=== PATIENT | female | born 1960 | race Caucasian/White ===

== ENCOUNTER 2016-02-23 07:08 | Outpatient (CLI) | payer OTHER | END 2016-02-23 07:09 | disposition home or self-care (01) | DX: J06.9 Acute upper respiratory infection, unspecified (principal) ==

== ENCOUNTER 2016-05-04 08:21 | Outpatient (CLI) | payer OTHER | END 2016-05-04 08:22 | disposition home or self-care (01) | DX: R53.83 Other fatigue (principal) ==

== ENCOUNTER 2016-05-22 13:52 | Outpatient (CLI) | payer OTHER | END 2016-05-22 13:53 | disposition home or self-care (01) | DX: Z12.31 Encounter for screening mammogram for malignant neoplasm of breast (principal); Z80.3 Family history of malignant neoplasm of breast ==

== ENCOUNTER 2017-08-31 08:27 | Outpatient (CLI) | payer OTHER | END 2017-08-31 08:28 | disposition home or self-care (01) | LOC: LAB 08:27 | PROVIDERS: ATTEND Physician Assistant Medical | DX: Z00.00 Encounter for general adult medical examination without abnormal findings (principal); E03.9 Hypothyroidism, unspecified; Z79.899 Other long term (current) drug therapy; Z13.818 Encounter for screening for other digestive system disorders; Z72.89 Other problems related to lifestyle; E78.2 Mixed hyperlipidemia ==

== ENCOUNTER 2017-09-07 08:39 | Outpatient (CLI) | payer OTHER ==
[2017-09-07 08:54] LABS: BASOPHILS # (AUTO) 0.1 10^3/uL (0.0-0.1); BASOPHILS % (AUTO) 1.2 %; EOSINOPHILS # (AUTO) 0.2 10^3/uL (0.0-0.7); EOSINOPHILS % (AUTO) 3.3 %; HGB - HEMOGLOBIN 13.1 g/dL (12.0-16.0); MEAN CORPUSCULAR HGB CONC 32.7 g/dL (32.0-36.0); MEAN CORPUSCULAR VOLUME 82.3 fL (81.0-99.0); MEAN PLATELET VOLUME 7.9 fL (7.9-10.8); MONOCYTES # (AUTO) 0.3 10^3/uL (0.0-1.0); MONOCYTES % (AUTO) 4.9 %; NEUTROPHILS # (AUTO) 2.9 10^3/uL (1.5-6.6); NEUTROPHILS % (AUTO) 53.6 %; PLT - PLATELET COUNT 270 10^3/uL (130-450); RED BLOOD COUNT 4.87 10^6/uL (4.20-5.40); RED CELL DISTRIBUTION WIDTH 14.1 % (12.0-15.0); WHITE BLOOD COUNT 5.5 x10^3/uL (4.8-10.8)
[2017-09-07 09:12] LABS: ALBUMIN/GLOBULIN RATIO 1.4 (1.0-2.2); ALKALINE PHOSPHATASE 56 IU/L (42-121); ALT ALANINE AMINOTRANSFERASE 19 IU/L (10-60); AST ASPARTATE AMINOTRANSFERASE 17 IU/L (10-42); BILIRUBIN,TOTAL 0.8 mg/dL (0.2-1.0); BUN - BLOOD UREA NITROGEN 20 mg/dL (6-20); CALCIUM 8.7 mg/dL (8.5-10.3); CARBON DIOXIDE - CO2 23 mmol/L (21-32); CHLORIDE 108 mmol/L (101-111); CHOL/HDL RATIO 3.5 (<4.4); CHOLESTEROL 221 mg/dL; CREATININE 0.7 mg/dL (0.4-1.0); GFR - MDRD 87 (>89); GLUCOSE 101 mg/dL (70-100); HDL CHOLESTEROL 64 mg/dL; LDL CHOLESTEROL,CALCULATED 142 mg/dL; LDL/HDL RATIO 2.2 (<4.4); SODIUM 138 mmol/L (135-145); TOTAL PROTEIN 6.9 g/dL (6.7-8.2); VLDL CHOLESTEROL 15 mg/dL
[2017-09-07 09:46] LABS: THYROID STIMULATING HORMONE 2.14 uIU/mL (0.34-5.60)
[2017-09-07 09:48] LABS: FREE T4 (FREE THYROXINE) 0.44 ng/dL (0.58-1.64)
[2017-09-09 12:52] LABS: HEPATITIS C ANTIBODY NON-REACTIVE (NON-REACTIVE)
== END 2017-09-07 08:40 | disposition home or self-care (01) ==
LOC: LAB 08:39
PROVIDERS: ATTEND Physician Assistant Medical
DX: Z00.00 Encounter for general adult medical examination without abnormal findings (principal); E03.9 Hypothyroidism, unspecified; Z79.899 Other long term (current) drug therapy; Z13.818 Encounter for screening for other digestive system disorders
CPT/HCPCS: 36415; 80053; 80061; 83721; 84439; 84443; 84481; 85025; 86803

== ENCOUNTER 2017-09-12 15:39 | Outpatient (CLI) | payer OTHER ==
--- NOTE | 2017-09-16 10:06 | Mammography Report ---
Procedure Date: 09/15/2017 Accession Number: [id number] / [id number] Procedure: MGN - Screening Mammo Dig Bilat CPT Code: FULL RESULT: EXAM: Screening Mammo Dig Bilat DATE: 09/15/2017 8:18 AM CLINICAL HISTORY: 57-year-old female with family history of breast cancer in the mother at age 71 presents for screening mammogram. TECHNIQUE: Bilateral CC and MLO views were obtained. COMPARISON: 05/22/2016, 04/27/2015, 03/25/2014. FINDINGS: The breasts demonstrate scattered fibroglandular densities bilaterally. No suspicious masses, clustered microcalcifications, or regions of architectural distortion are identified. IMPRESSION: Negative examination RECOMMENDATION: Routine annual screening unless otherwise clinically indicated. BIRADS CATEGORY 1: Negative STANDARD QUALIFYING STATEMENTS: 1. This examination was reviewed with the aid of Computer-Aided Detection (CAD). 2. A negative or benign imaging report should not delay biopsy if clinically suspicious findings are present. Consider surgical consultation if warrented. More than 5% of cancers are not identified by imaging. 3. Dense breasts may obscure an underlying neoplasm.
== END 2017-09-12 15:40 | disposition home or self-care (01) ==
LOC: DI.N 15:39
PROVIDERS: ATTEND Physician Assistant Medical
DX: Z12.31 Encounter for screening mammogram for malignant neoplasm of breast (principal); Z80.3 Family history of malignant neoplasm of breast
CPT/HCPCS: 77067

== ENCOUNTER 2017-10-27 13:59 | Outpatient (CLI) | payer OTHER | END 2017-10-27 14:00 | disposition home or self-care (01) | LOC: NS 13:59 | PROVIDERS: ATTEND Physician Assistant Medical | DX: Z71.3 Dietary counseling and surveillance (principal); E66.9 Obesity, unspecified; Z68.38 Body mass index [BMI] 38.0-38.9, adult | CPT/HCPCS: 97802 ==

== ENCOUNTER 2017-11-01 07:54 | Outpatient (CLI) | payer OTHER ==
[2017-11-01 15:53] LABS: THYROID STIMULATING HORMONE 1.69 uIU/mL (0.34-5.60)
[2017-11-01 15:55] LABS: FREE T4 (FREE THYROXINE) 0.45 ng/dL (0.58-1.64)
== END 2017-11-01 07:55 | disposition home or self-care (01) ==
LOC: LAB 07:54
PROVIDERS: ATTEND Physician Assistant Medical
DX: R53.83 Other fatigue (principal); E03.9 Hypothyroidism, unspecified; Z79.899 Other long term (current) drug therapy
CPT/HCPCS: 36415; 82533; 84439; 84443; 84481

== ENCOUNTER 2017-11-01 15:13 | Outpatient (CLI) | payer OTHER ==
--- NOTE | 2017-11-01 16:48 | XRAY Report ---
Reason: LEG PAIN,RIGHT Procedure Date: 11/01/2017 Accession Number: [id number] / [id number] Procedure: XR - Tib/Fib RT CPT Code: FULL RESULT: EXAM: RIGHT TIBIA/FIBULA RADIOGRAPHY EXAM DATE: 11/01/2017 03:28 PM. CLINICAL HISTORY: LEG Pain, right. COMPARISON: None. TECHNIQUE: 2 views. FINDINGS: Bones: Normal. No fracture or bone lesion. Joints: The visualized knee and ankle joints are normal. No effusions. Soft Tissues: There is small calcifications within the pretibial soft tissues. No acute soft tissue abnormalities are seen. IMPRESSION: 1. No fracture or focal bony lesion. 2. There are small benign-appearing calcifications within the pretibial soft tissues. RADIA
--- NOTE | 2017-11-02 12:19 | Ultrasound Report ---
Reason: ABNORMAL UTERINE BLEEDING Procedure Date: 11/01/2017 Accession Number: [id number] / [id number] Procedure: US - Pelvic w/Transvaginal CPT Code: FULL RESULT: EXAM: PELVIC ULTRASOUND EXAM DATE: 11/01/2017 04:01 PM. CLINICAL HISTORY: Abnormal uterine bleeding. COMPARISON: None. TECHNIQUE: Realtime transabdominal pelvic scan performed to identify the uterus and adnexa and as an overview of other pelvic structures, followed by transvaginal scan to provide greater detail of the uterus and adnexa, with static image documentation. FINDINGS: Uterus: 8.0 x 4.0 x 4.3 cm, volume 72 cc. Anteverted position. Normal overall size and echotexture. Masses: 2.3 x 2.2 x 2.7 cm anterior superior subserosal uterine fibroid. Endometrium: 2.7 mm. No endometrial mass or polyp. Cervix: 1 cm nabothian anechoic cyst. No mass. Right Ovary: 1.4 x 1.1 x 1.3 cm, volume 1.05 cc. Normal echotexture and blood flow. Seen only on the transabdominal imaging. Left Ovary: 1.8 x 1.2 x 1.5 cm, volume 1.7 cc. Normal echotexture and blood flow. Free Fluid: None. Other: None. IMPRESSION: 1. 2.7 cm subserosal uterine fibroid. 2. No endometrial mass or polyp. Endometrium measures 2.7 mm. In the appropriate clinical circumstances, endometrial atrophy can have a similar appearance. Correlate clinically. 3. Both ovaries and adnexa are normal. RADIA
== END 2017-11-01 15:14 | disposition home or self-care (01) ==
LOC: DI 15:13
PROVIDERS: ATTEND Physician Assistant Medical
DX: N93.9 Abnormal uterine and vaginal bleeding, unspecified (principal); D25.2 Subserosal leiomyoma of uterus; M79.604 Pain in right leg; R53.83 Other fatigue; E03.9 Hypothyroidism, unspecified; Z79.899 Other long term (current) drug therapy
CPT/HCPCS: 36415; 76830; 76856; 82533; 84439; 84443; 84481

== ENCOUNTER 2017-11-27 13:57 | Outpatient (CLI) | payer OTHER | END 2017-11-27 13:58 | disposition home or self-care (01) | LOC: NS 13:57 | PROVIDERS: ATTEND Physician Assistant Medical | DX: Z71.3 Dietary counseling and surveillance (principal); Z68.37 Body mass index [BMI] 37.0-37.9, adult | CPT/HCPCS: 97803 ==

== ENCOUNTER 2018-04-12 08:13 | Outpatient (CLI) | payer BC | END 2018-04-12 08:14 | disposition home or self-care (01) | LOC: DI 08:13 | PROVIDERS: ATTEND Registered Nurse | DX: Z53.9 Procedure and treatment not carried out, unspecified reason (principal) ==

== ENCOUNTER 2018-04-13 11:22 | Outpatient (CLI) | payer BC ==
--- NOTE | 2018-04-13 14:22 | XRAY Report ---
Reason: THORACIC BACK PAIN Procedure Date: 04/13/2018 Accession Number: [id number] / [id number] Procedure: XR - Thoracic Spine 2 View CPT Code: FULL RESULT: EXAM: THORACIC SPINE RADIOGRAPHY EXAM DATE: 04/13/2018 11:54 AM. CLINICAL HISTORY: Thoracic back pain. COMPARISON: Thoracic spine 3 views 11/10/2012. TECHNIQUE: 2 views. FINDINGS: Alignment: Mild thoracic kyphosis appears similar to 2012. No listhesis is identified. No scoliosis. Bones: No fractures or bone lesions. Disks: Normal. Disk heights are maintained. Soft Tissues: Normal. The visualized lungs and cardiomediastinal silhouette are normal. IMPRESSION: Mild thoracic kyphosis. RADIA
== END 2018-04-13 11:23 | disposition home or self-care (01) ==
LOC: DI 11:22
PROVIDERS: ATTEND Registered Nurse
DX: M54.6 Pain in thoracic spine (principal); M40.204 Unspecified kyphosis, thoracic region
CPT/HCPCS: 72070

== ENCOUNTER 2018-11-03 07:39 | Outpatient (CLI) | payer BC ==
[2018-11-03 08:02] LABS: BASOPHILS % (AUTO) 0.5 %; EOSINOPHILS # (AUTO) 0.2 10^3/uL (0.0-0.7); EOSINOPHILS % (AUTO) 3.4 %; HGB - HEMOGLOBIN 12.9 g/dL (12.0-16.0); LYMPHOCYTES % (AUTO) 31.7 %; MEAN CORPUSCULAR HEMOGLOBIN 26.3 pg (27.0-31.0); MEAN CORPUSCULAR HGB CONC 31.9 g/dL (32.0-36.0); MEAN CORPUSCULAR VOLUME 82.4 fL (81.0-99.0); MEAN PLATELET VOLUME 10.1 fL (7.9-10.8); MONOCYTES # (AUTO) 0.4 10^3/uL (0.0-1.0); MONOCYTES % (AUTO) 6.6 %; NEUTROPHILS # (AUTO) 3.7 10^3/uL (1.5-6.6); NEUTROPHILS % (AUTO) 57.6 %; PLT - PLATELET COUNT 262 10^3/uL (130-450); WHITE BLOOD COUNT 6.4 x10^3/uL (4.8-10.8)
[2018-11-03 08:20] LABS: ALBUMIN 4.2 g/dL (3.2-5.5); ALBUMIN/GLOBULIN RATIO 1.4 (1.0-2.2); ALKALINE PHOSPHATASE 55 IU/L (42-121); ALT ALANINE AMINOTRANSFERASE 27 IU/L (10-60); AST ASPARTATE AMINOTRANSFERASE 19 IU/L (10-42); BILIRUBIN,TOTAL 0.7 mg/dL (0.2-1.0); BUN - BLOOD UREA NITROGEN 17 mg/dL (6-20); CALCIUM 9.2 mg/dL (8.5-10.3); CARBON DIOXIDE - CO2 25 mmol/L (21-32); CHLORIDE 106 mmol/L (101-111); CHOL/HDL RATIO 3.7 (<4.4); CHOLESTEROL 256 mg/dL; CREATININE 0.6 mg/dL (0.4-1.0); GFR - MDRD 103 (>89); GLUCOSE 107 mg/dL (70-100); HDL CHOLESTEROL 70 mg/dL; LDL CHOLESTEROL,CALCULATED 168 mg/dL; LDL/HDL RATIO 2.4 (<4.4); SODIUM 140 mmol/L (135-145); TOTAL PROTEIN 7.1 g/dL (6.7-8.2); VLDL CHOLESTEROL 18 mg/dL
[2018-11-03 08:33] LABS: THYROID STIMULATING HORMONE 2.09 uIU/mL (0.34-5.60)
[2018-11-03 08:35] LABS: FREE T4 (FREE THYROXINE) 0.45 ng/dL (0.58-1.64)
== END 2018-11-03 07:40 | disposition home or self-care (01) ==
LOC: LAB 07:39
PROVIDERS: ATTEND Nurse Practitioner
DX: R53.83 Other fatigue (principal); E03.9 Hypothyroidism, unspecified; Z79.899 Other long term (current) drug therapy; E78.2 Mixed hyperlipidemia
CPT/HCPCS: 36415; 80053; 80061; 83721; 84439; 84443; 84481; 85025

== ENCOUNTER 2019-04-09 14:41 | Outpatient (CLI) | payer BC ==
--- NOTE | 2019-04-12 08:59 | Mammography Report ---
Reason: ROUTINE MAMMO Procedure Date: 04/09/2019 Accession Number: [id number] / [id number] Procedure: OTILIA - Screening Mammo w/Tramaine CPT Code: Final Report FULL RESULT: EXAM: Screening Mammo w/Tramaine DATE: 04/09/2019 2:58 PM CLINICAL HISTORY: Screening encounter. Family history of breast cancer in the mother at the age of 70. TECHNIQUE: (B) - Bilateral CC and MLO views were obtained. COMPARISON: 09/12/2017 through 11/16/2009. PARENCHYMAL PATTERN: (A) - The breast(s) demonstrate(s) scattered fibroglandular densities. FINDINGS: There are no suspicious masses, calcifications, or areas of distortion. IMPRESSION: Negative examination. BI-RADS category 1. RECOMMENDATION: (ANNUAL) - Recommend routine annual screening mammography. BI-RADS CATEGORY: (1) - Negative. STANDARD QUALIFYING STATEMENTS: 1. This examination was not reviewed with the aid of Computer-Aided Detection (CAD). 2. A negative or benign imaging report should not preclude biopsy if clinically suspicious findings are present. 3. Dense breasts may obscure an underlying neoplasm. 4. This examination was reviewed with the aid of 3D breast imaging (tomosynthesis).
== END 2019-04-09 14:42 | disposition home or self-care (01) ==
LOC: DI 14:41
PROVIDERS: ATTEND Nurse Practitioner
DX: Z12.31 Encounter for screening mammogram for malignant neoplasm of breast (principal); Z80.3 Family history of malignant neoplasm of breast
CPT/HCPCS: 77063; 77067

== ENCOUNTER 2019-11-19 08:00 | Outpatient (CLI) | payer BC ==
[2019-11-19 08:28] LABS: ALBUMIN 4.3 g/dL (3.2-5.5); ALBUMIN/GLOBULIN RATIO 1.5 (1.0-2.2); ALKALINE PHOSPHATASE 52 IU/L (42-121); ALT ALANINE AMINOTRANSFERASE 21 IU/L (10-60); AST ASPARTATE AMINOTRANSFERASE 16 IU/L (10-42); BILIRUBIN,TOTAL 0.8 mg/dL (0.2-1.0); BUN - BLOOD UREA NITROGEN 16 mg/dL (6-20); CALCIUM 9.1 mg/dL (8.5-10.3); CARBON DIOXIDE - CO2 26 mmol/L (21-32); CHLORIDE 104 mmol/L (101-111); CHOL/HDL RATIO 3.8 (<4.4); CHOLESTEROL 234 mg/dL; CREATININE 0.7 mg/dL (0.4-1.0); GLUCOSE 98 mg/dL (70-100); HDL CHOLESTEROL 61 mg/dL; LDL CHOLESTEROL,CALCULATED 156 mg/dL; LDL/HDL RATIO 2.6 (<4.4); SODIUM 140 mmol/L (135-145); TOTAL PROTEIN 7.1 g/dL (6.7-8.2); VLDL CHOLESTEROL 17 mg/dL
[2019-11-19 08:42] LABS: BASOPHILS % (AUTO) 0.6 %; EOSINOPHILS # (AUTO) 0.2 10^3/uL (0.0-0.7); EOSINOPHILS % (AUTO) 3.1 %; HGB - HEMOGLOBIN 13.3 g/dL (12.0-16.0); LYMPHOCYTES % (AUTO) 46.9 %; MEAN CORPUSCULAR HEMOGLOBIN 26.5 pg (27.0-31.0); MEAN CORPUSCULAR HGB CONC 31.7 g/dL (32.0-36.0); MEAN CORPUSCULAR VOLUME 83.6 fL (81.0-99.0); MONOCYTES # (AUTO) 0.3 10^3/uL (0.0-1.0); MONOCYTES % (AUTO) 5.2 %; NEUTROPHILS # (AUTO) 2.8 10^3/uL (1.5-6.6); PLT - PLATELET COUNT 313 10^3/uL (130-450); RED BLOOD COUNT 5.01 10^6/uL (4.20-5.40); RED CELL DISTRIBUTION WIDTH 13.8 % (12.0-15.0); WHITE BLOOD COUNT 6.4 x10^3/uL (4.8-10.8)
== END 2019-11-19 08:01 | disposition home or self-care (01) ==
LOC: LAB 08:00
PROVIDERS: ATTEND Nurse Practitioner
DX: Z00.00 Encounter for general adult medical examination without abnormal findings (principal); E78.2 Mixed hyperlipidemia; E03.9 Hypothyroidism, unspecified
CPT/HCPCS: 36415; 80053; 80061; 83721; 84443; 85025

== ENCOUNTER 2019-12-09 14:47 | Outpatient (CLI) | payer BC ==
--- NOTE | 2019-12-09 15:46 | XRAY Report ---
PROCEDURE: Hips 2V BILAT INDICATIONS: RUQ ABDOMINAL PAIN, BILATERAL HIP PAIN TECHNIQUE: 3 views of the hip were acquired. COMPARISON: None. FINDINGS: Bones: No acute fractures or dislocations. Ossification projects over the right superolateral acetab ular rim. No suspicious bony lesions. The visualized pelvic ring appears intact. Soft tissues: No suspicious soft tissue calcifications or masses. IMPRESSION: Bilateral hip without acute osseous abnormalities. Reviewed by: Tee Harrison MD on 12/09/2019 3:45 PM PDT Approved by: Tee Harrison MD on 12/09/2019 3:45 PM PDT Station ID: [id number]
== END 2019-12-09 14:48 | disposition home or self-care (01) ==
LOC: DI 14:47
PROVIDERS: ATTEND Nurse Practitioner
DX: M25.551 Pain in right hip (principal); M25.552 Pain in left hip
CPT/HCPCS: 73521

== ENCOUNTER 2019-12-16 06:54 | Outpatient (CLI) | payer BC ==
--- NOTE | 2019-12-16 08:40 | Ultrasound Report ---
PROCEDURE: Abdomen Limited INDICATIONS: RUQ ABDOMINAL PAIN, BILATERAL HIP PAIN TECHNIQUE: Real-time focused scanning was performed of the abdomen, with image documentation. COMPARISON: FINDINGS: And visualized portions of the pancreas are unremarkable. Mildly increased hepatic parenchymal echogenicity suggestive of diffuse hepatic steatosis. In the ant erior right hepatic lobe there is an approximately 1.7 cm mostly anechoic lesion consistent with a si mple cyst. There is no evidence of a solid hepatic mass. No intrahepatic or extrahepatic biliary ductal dilatation. Normal appearance of the gallbladder. The right kidney is unremarkable. IMPRESSION: Mild hepatic steatosis. No cholelithiasis or cholecystitis. Reviewed by: Jyay Barnes MD on 12/16/2019 8:39 AM PST Approved by: Jayy Barnes MD on 12/16/2019 8:39 AM PST Station ID: [id number]
== END 2019-12-16 06:55 | disposition home or self-care (01) ==
LOC: DI 06:54
PROVIDERS: ATTEND Nurse Practitioner
DX: R10.11 Right upper quadrant pain (principal); K76.0 Fatty (change of) liver, not elsewhere classified
CPT/HCPCS: 76705

== ENCOUNTER 2020-05-08 14:56 | Outpatient (CLI) | payer BC ==
--- NOTE | 2020-05-09 11:39 | Mammography Report ---
BILATERAL DIGITAL SCREENING MAMMOGRAM 3D/2D: 05/08/2020 CLINICAL: Family history of breast cancer. Routine screening. Comparison is made to exams dated: 04/09/2019 mammogram, 09/12/2017 mammogram, 05/22/2016 mammogram, 04/10 mammogram, 04/07/2014 ultrasound, and 04/07/2014 mammogram - [facility]. Ther e are scattered fibroglandular elements in both breasts. No significant masses, calcifications, or other findings are seen in either breast. There has been no significant interval change. IMPRESSION: NEGATIVE There is no mammographic evidence of malignancy. A 1 year screening mammogram is recommended. This exam was interpreted at Station ID: [id number]. NOTE: For mammograms, a report in lay terms will be sent to the patient. Approximately 15% of breast malignancies will not be visualized mammographically. In the management of a palpable breast mass, a negative mammogram must not discourage biopsy of a clinically suspicious lesion. Electronically Signed By: Tee Harrison M.D. at/[place]:05/08/2020 15:57:59 ACR BI-RADS Category 1: Negative 3341F PARENCHYMAL PATTERN: (A) - The breast(s) demonstrate(s) scattered fibroglandular densities. BI-RADS CATEGORY: (1) - 1 RECOMMENDATION: (ANNUAL) - Recommend routine annual screening mammography. [id number] 1 year screening LATERALITY: (B)
== END 2020-05-08 14:57 | disposition home or self-care (01) ==
LOC: DI.N 14:56
DX: Z12.31 Encounter for screening mammogram for malignant neoplasm of breast (principal); Z80.3 Family history of malignant neoplasm of breast

== ENCOUNTER 2020-05-15 10:25 | Outpatient (CLI) | payer BC ==
[2020-05-15 12:48] LABS: BASOPHILS # (AUTO) 0.1 10^3/uL (0.0-0.1); BASOPHILS % (AUTO) 0.6 %; EOSINOPHILS # (AUTO) 0.1 10^3/uL (0.0-0.7); EOSINOPHILS % (AUTO) 1.2 %; HCT - HEMATOCRIT 43.1 % (37.0-47.0); HGB - HEMOGLOBIN 13.9 g/dL (12.0-16.0); LYMPHOCYTES # (AUTO) 2.4 10^3/uL (1.5-3.5); LYMPHOCYTES % (AUTO) 24.4 %; MEAN CORPUSCULAR HEMOGLOBIN 26.8 pg (27.0-31.0); MEAN CORPUSCULAR HGB CONC 32.3 g/dL (32.0-36.0); MEAN PLATELET VOLUME 11.1 fL (7.9-10.8); MONOCYTES # (AUTO) 0.6 10^3/uL (0.0-1.0); MONOCYTES % (AUTO) 5.5 %; NEUTROPHILS # (AUTO) 6.8 10^3/uL (1.5-6.6); PLT - PLATELET COUNT 325 10^3/uL (130-450); RED BLOOD COUNT 5.19 10^6/uL (4.20-5.40); RED CELL DISTRIBUTION WIDTH 14.1 % (12.0-15.0)
[2020-05-15 13:11] LABS: ALBUMIN 4.4 g/dL (3.2-5.5); ALBUMIN/GLOBULIN RATIO 1.5 (1.0-2.2); ALKALINE PHOSPHATASE 56 IU/L (42-121); ALT ALANINE AMINOTRANSFERASE 37 IU/L (10-60); AST ASPARTATE AMINOTRANSFERASE 27 IU/L (10-42); BILIRUBIN,TOTAL 0.6 mg/dL (0.2-1.0); BUN - BLOOD UREA NITROGEN 24 mg/dL (6-20); CALCIUM 9.9 mg/dL (8.5-10.3); CARBON DIOXIDE - CO2 25 mmol/L (21-32); CHLORIDE 107 mmol/L (101-111); CHOL/HDL RATIO 3.6 (<4.4); CHOLESTEROL 224 mg/dL; CREATININE 0.7 mg/dL (0.4-1.0); GFR - MDRD 86 (>89); GLUCOSE 112 mg/dL (70-100); HDL CHOLESTEROL 63 mg/dL; LDL CHOLESTEROL,CALCULATED 143 mg/dL; LDL/HDL RATIO 2.3 (<4.4); LIPASE 40 U/L (22-51); POTASSIUM 3.9 mmol/L (3.5-5.0); SODIUM 142 mmol/L (135-145); TOTAL PROTEIN 7.4 g/dL (6.7-8.2); TRIGLYCERIDES 88 mg/dL; VLDL CHOLESTEROL 18 mg/dL
== END 2020-05-15 10:26 | disposition home or self-care (01) ==
LOC: LAB.N 10:25
PROVIDERS: ATTEND Family Medicine
DX: K29.70 Gastritis, unspecified, without bleeding (principal); R07.9 Chest pain, unspecified
CPT/HCPCS: 36415; 80053; 80061; 83690; 83721; 84484; 85025; 87338

== ENCOUNTER 2020-05-16 14:35 | Outpatient (CLI) | payer BC ==
[2020-05-16 16:55] LABS: H. PYLORIS ANTIGEN STL POSITIVE (Negative)
== END 2020-05-16 23:59 | disposition home or self-care (01) ==
LOC: LAB.R 14:35
PROVIDERS: ATTEND Family Medicine
DX: K29.70 Gastritis, unspecified, without bleeding (principal)
CPT/HCPCS: 87338

== ENCOUNTER 2020-09-22 11:45 | Outpatient (CLI) | payer BC ==
[2020-09-22 12:17] LABS: CALCIUM 9.8 mg/dL (8.5-10.3); CREATININE 0.7 mg/dL (0.4-1.0); MAGNESIUM 2.4 mg/dL (1.7-2.8)
== END 2020-09-22 11:46 | disposition home or self-care (01) ==
LOC: LAB 11:45
PROVIDERS: ATTEND Internal Medicine Cardiovascular Disease
DX: I10 Essential (primary) hypertension (principal)
CPT/HCPCS: 36415; 80048; 83735; 84443